=== PATIENT | female | born 1990 | race Hispanic/Latino ===

== ENCOUNTER 2018-06-15 15:23 | Outpatient (CLI) | payer OTHER ==
--- NOTE | 2018-06-15 17:01 | ULT ---
RENAL ULTRASOUND: 06/15/18 INDICATION: History of polycystic kidney disease. COMPARISON: None. FINDINGS: The right kidney measures 12.2 x 6.3 x 5.4 cm. Left kidney measures 12.0 x 7 x 5.5 cm. There are nume boom cystic abnormalities affecting both kidneys consistent with patient's history of polycystic kidn ey disease. No yodit hydronephrosis is evident. Bladder was largely decompressed. Total bladder volu me was 22 mL. IMPRESSION: Bilateral renal cysts. POS: C
== END 2018-06-15 15:24 | disposition home or self-care (01) ==
LOC: BICULT 15:23
PROVIDERS: ATTEND Internal Medicine Nephrology
DX: Q61.3 Polycystic kidney, unspecified (principal); I10 Essential (primary) hypertension
CPT/HCPCS: 76770

== ENCOUNTER 2019-02-15 22:01 | Emergency (ER) | payer OTHER ==
--- NOTE | 2019-02-15 22:32 | RAD ---
EXAM: 3 views of the left hand COMPARISON: None HISTORY: Fifth digit pain FINDINGS: 3 views of the left hand shows no evidence of acute fracture or dislocation. No degenerativ e changes are seen. No soft tissue swelling is present. IMPRESSION: Unremarkable exam.
== END 2019-02-15 22:46 | disposition home or self-care (01) ==
LOC: ERS 22:01
DX: S60.051A Contusion of right little finger without damage to nail, initial encounter (principal); I10 Essential (primary) hypertension; Z79.899 Other long term (current) drug therapy; W23.0XXA Caught, crushed, jammed, or pinched between moving objects, initial encounter

== ENCOUNTER 2019-08-29 07:30 | Inpatient (IN) | payer OTHER ==
[2019-08-29] MEDS ORDERED: Bupivacaine 0.25% HCL 30 ML VIAL ONE (09:06)
[2019-08-29] MEDS ORDERED: Promethazine HCl 25 MG/ML VIAL IM PRN (19:09)
[2019-08-29] MEDS ORDERED: NS / Oxytocin 40 units/1000ml 1,000 ML IV PRN (19:09)
[2019-08-29] MEDS ORDERED: HYDROcodone/Acetaminophen 5/325 mg Tablet PO PRN ×2 (19:09)
[2019-08-29] MEDS ORDERED: Ondansetron PF 4 MG/2 ML Vial IVP PRN (19:09)
[2019-08-29] MEDS ORDERED: Ibuprofen 800 MG TAB PO PRN (19:09)
[2019-08-29] MEDS ORDERED: Misoprostol 100 MCG TAB VAG PRN (19:09)
[2019-08-29] MEDS ORDERED: hydrALAZINE 20 MG/ML VIAL SLOW IVP PRN (19:09)
[2019-08-29] MEDS ORDERED: Lidocaine 1% (PF) 30 ML VIAL SC PRN (19:09)
[2019-08-29] MEDS: Lactated Ringer's 1,000 ML IV SCH (19:20)
[2019-08-29] MEDS ORDERED: NS w/ Oxytocin 10 units 500 ML IV SCH ×2 (19:30)
[2019-08-29 19:40] LABS: Hemoglobin 12.4 g/dL (12.0-16.0); Mean Corpuscular HGB CONC 35.8 g/dL (32.0-36.0); Mean Corpuscular Hemoglobin 35.1 pg (27.0-31.0); Mean Corpuscular Volume 98.1 fL (78.0-98.0); Mean Platelet Volume 7.6 fL (7.4-10.4); Platelet Count 210 thou/uL (130-400); RBC Distribution Width 12.1 % (11.5-14.5); Red Blood Cell (RBC) Count 3.54 mill/uL (4.20-5.40); White Blood Cell (WBC) Count 5.3 thou/uL (4.8-10.8)
[2019-08-29 19:47] VITALS: BMI 23.7
[2019-08-29] MEDS ORDERED: Misoprostol 100 MCG TAB VAG SCH (20:00)
[2019-08-29 20:35] LABS: Syphilis Antibody Nonreactive (Nonreactive); Syphilis Antibody Index 0.02 S/CO (<1.00 Non-Reactive)
[2019-08-30] MEDS: Lactated Ringer's 1,000 ML IV SCH ×2 (00:18→08:44)
[2019-08-30 00:44] LABS: HBSAg Index 0.23 S/CO (0-0.99); Hep B Surf Ag Non-Reactive S/CO (NonReactive)
[2019-08-30] MEDS ORDERED: Butorphanol Tartrate 1 MG/ML VIAL ONE (03:29)
[2019-08-30] MEDS ORDERED: Butorphanol Tartrate 1 MG/ML VIAL SLOW IVP PRN (04:30)
[2019-08-30] MEDS ORDERED: Fentanyl 4 mcg/Bup 0.1% Cadd 100 ML ONE (07:45)
--- NOTE | 2019-08-30 08:43 | PDOC.LDHP ---
Labor and Delivery H&P Chief complaint: scheduled induction (for PIH and adult PCKD) HPI: Pt is scheduled for IOL for PIH dx @ 36 weeks in the setting of adult polycystic kidney disease. Current gestational age (weeks): 37 Due date: 09/19/19 Dating criteria: last menstrual period, first trimester ultrasound Grav: 1 Para: 0 Current complications: gestational hypertension Abnormal US findings: No Current medications: pre- vitamins, other (amlodipine 5mg a day) Allergies/Adverse Reactions: Allergies Allergy/AdvReac Type Severity Reaction Status Date / Time No Known Drug Allergies Allergy Verified 08/30/19 05:49 Social history: none - Physical Exam Vital signs reviewed and normal: yes (mild range BP) General: NAD, breathing through contractions Heart: RRR Lungs: CTAB Abdomen: gravid Extremeties: no edema FHT: category 1 - Vaginal Exam cm dilated: 4 (AROM w clear fluid) Effacement: 50% Station: -1 - OB Labs Blood type: O RH: positive Antibody Screen: negative HIV: negative RPR: negative HEPSAg: negative GBS: negative Urine drug screen: negative Rubella: immune - Assessment L&D Assessment: medically indicated induction - Plan Plan: admit to L&D, labor augmentation if indicated, informed consent obtained, anesthesia consult for pain management
[2019-08-30] MEDS ORDERED: Naloxone HCl 0.4 mg/ml Vial IVP PRN ×2 (09:44)
[2019-08-30] MEDS ORDERED: Acetaminophen 325 MG TAB PO PRN (09:44)
[2019-08-30] MEDS ORDERED: diphenhydrAMINE 50 MG/ML VIAL IVP PRN (09:44)
[2019-08-30] MEDS ORDERED: Ondansetron PF 4 MG/2 ML Vial IVP PRN ×2 (09:44→13:35)
[2019-08-30] MEDS ORDERED: EPHEDRINE 25 MG/5 ML SYRINGE SLOW IVP PRN (09:44)
[2019-08-30] MEDS ORDERED: Promethazine HCl 25 MG/ML VIAL IM PRN (09:44)
[2019-08-30] MEDS ORDERED: Lactated Ringer's 500 ML IV PRN (09:44)
[2019-08-30] MEDS ORDERED: Fentanyl 4 mcg/Bupivacaine 0.1% Cassette 100 ML EPIDURAL SCH (09:45)
[2019-08-30] MEDS ORDERED: Communication Order-Pharmacy FS SCH (09:45)
--- NOTE | 2019-08-30 11:55 | PDOC.OPDEL ---
OB Operative/Delivery Note Delivery Dr/Surgeon: Zana Pre-Delivery Diagnosis: medically indicated induction (PIH and APKD) Procedure/Post Delivery Dx: spontaneous vaginal delivery Weeks gestation: 37 Anesthesia: epidural - Findings A Sex: female - 1 min: 9 - 5 min: 9 - Additional Findings/Plan Placenta delivered: spontaneous Repaired Obstetrical Laceration: 2nd degree Estimated blood loss: 350ml Post delivery plan: routine recovery
[2019-08-30] MEDS ORDERED: hydrALAZINE 20 MG/ML VIAL SLOW IVP PRN (13:35)
[2019-08-30] MEDS ORDERED: diphenhydrAMINE 25 MG CAP PO PRN (13:35)
[2019-08-30] MEDS ORDERED: HYDROcodone/Acetaminophen 5/325 mg Tablet PO PRN ×2 (13:35)
[2019-08-30] MEDS ORDERED: Preparation H Ointment 28 GM TUBE PR PRN (13:35)
[2019-08-30] MEDS ORDERED: Bisacodyl 10 MG SUPP PR PRN (13:35)
[2019-08-30] MEDS ORDERED: Lanolin Ointment 7 GM TUBE TOP PRN (13:35)
[2019-08-30] MEDS ORDERED: Milk Of Magnesia 30 ML UDCUP PO PRN (13:35)
[2019-08-30] MEDS ORDERED: NS / Oxytocin 40 units/1000ml 1,000 ML IV SCH (13:35)
[2019-08-30] MEDS: Amlodipine 5 MG TAB PO SCH (13:37)
[2019-08-30] MEDS: Ferrous Sulfate 325 MG TAB PO SCH (19:35)
[2019-08-30] MEDS: Ibuprofen 800 MG TAB PO SCH ×2 (19:42→21:30)
[2019-08-30] MEDS: Docusate Calcium (SURFAK) 240 MG CAP PO SCH (21:30)
[2019-08-31] MEDS: Ibuprofen 800 MG TAB PO SCH ×2 (05:38→14:37)
[2019-08-31] MEDS: Ferrous Sulfate 325 MG TAB PO SCH ×2 (08:25→15:22)
[2019-08-31] MEDS: Amlodipine 5 MG TAB PO SCH (08:48)
[2019-08-31] MEDS: Docusate Calcium (SURFAK) 240 MG CAP PO SCH (08:49)
[2019-08-31] MEDS ORDERED: Adacel (T-DAP) 0.5 ML SYRINGE IM ONE (09:00)
[2019-08-31] MEDS ORDERED: Prenatal Vitamin 1 TAB PO SCH (09:00)
--- NOTE | 2019-08-31 10:36 | PDOC.PP ---
Post Progress Note Post Day #: 1 Subjective: doing well, no concerns, just feels sore PO intake tolerated: yes Flatus: yes Ambulation: yes Vital Signs (12 hours) Temp Pulse Resp BP Pulse Ox 08/31/19 08:48 67 08/31/19 07:38 98.1 F 67 20 127/87 97 08/31/19 04:00 98.1 F 73 16 117/71 97 08/31/19 00:00 98.3 F 86 16 122/82 97 Weight Weight 134 lb - Physical Examination General: NAD Respiratory: non-labored breathing Abdominal: no distention Fundus firm & at: below umb Skin: no rash Neurological: no gross focal deficits Psychiatric: A&Ox3, normal affect Result Diagrams: 08/29/19 19:20 Additional Labs: Post Labs Blood Type O POSITIVE 08/29/19 19:11 Hep Bs Antigen Non-Reactive S/CO (NonReactive) 08/29/19 19:11 (1) Vaginal delivery Code(s): O80 - ENCOUNTER FOR FULL-TERM UNCOMPLICATED DELIVERY Status: Acute (2) induced hypertension Code(s): O13.9 - GESTATIONAL HTN W/O SIGNIFICANT PROTEINURIA, UNSP TRIMESTER Status: Acute (3) Adult polycystic kidney disease Code(s): Q61.2 - POLYCYSTIC KIDNEY, ADULT TYPE Status: Acute - Assessment/Plan PPD1 doing well, no concerns, BP WNL. Possible DC this evening vs. tomorrow.
[2019-08-31 11:40] VITALS: TEMP 98
[2019-08-31 16:10] VITALS: BP 127/80
== END 2019-08-31 17:30 | disposition home or self-care (01) | DRG 806 ==
LOC: L&D 18:40 → 3SE 08-30 14:01
PROVIDERS: ADMIT Obstetrics & Gynecology; ATTEND Obstetrics & Gynecology
PROC: 10E0XZZ Delivery of Products of Conception, External Approach (ICD-10-PCS; principal; 2019-08-30)
PROC: 0KQM0ZZ Repair Perineum Muscle, Open Approach (ICD-10-PCS; 2019-08-30)
PROC: 10907ZC Drainage of Amniotic Fluid, Therapeutic from Products of Conception, Via Natural or Artificial Opening (ICD-10-PCS; 2019-08-30)
DX: O13.4 Gestational [pregnancy-induced] hypertension without significant proteinuria, complicating childbirth (principal); Q61.2 Polycystic kidney, adult type; Z37.0 Single live birth; O70.1 Second degree perineal laceration during delivery; Z3A.37 37 weeks gestation of pregnancy; O99.89 Other specified diseases and conditions complicating pregnancy, childbirth and the puerperium
CPT/HCPCS: 36415; 51702; 85027; 86780; 86850; 86900; 86901; 87340; J0595; S0020